=== PATIENT | male | born 1990 | race Caucasian/White ===

== ENCOUNTER 2025-03-03 09:58 | Emergency (ER) | payer OTHER ==
[~2025-03-03] VITALS: Ht 162.6 cm; Wt 84.4 kg
[2025-03-03] MEDS ORDERED: EPIN11.7 IH (10:07)
[2025-03-03] MEDS: IPRATROPIUM 0.5MG/ALBUTEROL 2.5MG INH SOL UD 3ML NEB ONE (12:16)
[2025-03-03 12:24] LABS: CK-MB VALUE MASS 1.6 NG/ML (<3.6)
[2025-03-03 12:27] LABS: BLOOD UREA NITROGEN 10 MG/DL (9-23); CALCIUM LEVEL 9.7 MG/DL (8.5-10.1); CARBON DIOXIDE LEVEL 24 MMOL/L (20-31); CHLORIDE LEVEL 107 MMOL/L (98-107); GLOMERULAR FILTRATION RATE > 90.0 (>60); GLUCOSE, FASTING 86 MG/DL (60-100); POTASSIUM SERUM 4.2 MMOL/L (3.5-5.1); SODIUM LEVEL 143 MMOL/L (136-145)
[2025-03-03 12:30] LABS: BASO # 0.1 10^3/uL (0.0-0.2); BASO % 0.9 % (0.0-1.0); CPK CREATINE PHOSPHOKINASE 294 U/L (46-171); EOS # 0.2 10^3/uL (0.0-0.5); EOS % 1.9 % (0.0-3.0); HEMATOCRIT 51.8 % (42.0-52.0); HEMOGLOBIN 17.9 g/dl (13.5-17.5); LYMPH # 3.2 10^3/uL (1.5-5.0); LYMPH % 39.5 % (24.0-44.0); MB/CK RELATIVE INDEX 0.54 (< OR =4); MEAN CORPUSCULAR HGB CONC 34.6 g/dl (32.0-36.5); MEAN CORPUSCULAR VOLUME 89.6 fl (80.0-96.0); MONO # 0.6 10^3/uL (0.0-0.8); PLATELET COUNT, AUTOMATED 167 10^3/uL (150-450); RED BLOOD COUNT 5.78 10^6/uL (4.30-6.10)
[2025-03-03] MEDS ORDERED: VENTAER INH (15:21)
[2025-03-03] MEDS ORDERED: PRED20TA PO (15:21)
[2025-03-03 15:26] VITALS: BP 111/71; TEMP 97.2; O2SAT 94
== END 2025-03-03 15:27 | disposition home or self-care (01) ==
LOC: M ED 09:58
DX: J98.01 Acute bronchospasm (principal); Z79.52 Long term (current) use of systemic steroids; Z79.899 Other long term (current) drug therapy

== ENCOUNTER → 2025-04-30 | Outpatient (CLI) | payer OTHER ==
[~2025-04-30] MED LIST: EPIN11.7 IH; PRED20TA PO; VENTAER INH
== END ==
LOC: M CARPUL 14:52
PROVIDERS: ATTEND Physician Assistant
DX: J98.01 Acute bronchospasm (principal)

== ENCOUNTER 2025-06-16 09:35 | Day surgery (SDC) | payer OTHER ==
[~2025-06-16] VITALS: Ht 167.6 cm; Wt 83.8 kg
[~2025-06-16 09:35] MED LIST changes: +ALBU8.5H INH; +OMEP-173 PO
[2025-06-16] MEDS ORDERED: GLYCOPYRROLATE INJ 0.2 MG/ML 2 ML VIAL As Ordered ONE (10:52)
[2025-06-16] MEDS ORDERED: LIDOCAINE 2% 100 MG/5 ML SDV (FOR ANES.) As Ordered ONE (10:52)
[2025-06-16 11:28] VITALS: BP 131/81; O2SAT 95
== END 2025-06-16 11:38 | disposition home or self-care (01) ==
LOC: M OPP 09:35
PROVIDERS: ATTEND Internal Medicine Gastroenterology
DX: K22.70 Barrett's esophagus without dysplasia (principal); K21.00 Gastro-esophageal reflux disease with esophagitis, without bleeding; K44.9 Diaphragmatic hernia without obstruction or gangrene; R12 Heartburn; Z79.899 Other long term (current) drug therapy; J45.909 Unspecified asthma, uncomplicated
CPT/HCPCS: 43239; 88305; J1596